=== PATIENT | female | born 1995 | race Hispanic/Latino ===

== ENCOUNTER 2020-07-21 22:49 | Observation (INO) | payer BC, MEDICAID ==
[~2020-07-21] VITALS: Ht 157.5 cm; Wt 102.1 kg
[2020-07-21 23:14] LABS: APPEARANCE,URINE Clear (CLEAR); BILIRUBIN,URINE Negative (NEGATIVE); COLOR,URINE Yellow (YELLOW); GLUCOSE, URINE (UA) Negative (NEGATIVE); KETONES,URINE Negative (NEGATIVE); LEUKOCYTE ESTERASE ,URINE Small (NEGATIVE); NITRATE,URINE Negative (NEGATIVE); OCCULT BLOOD,URINE Negative (NEGATIVE); PROTEIN,URINE Negative (NEGATIVE)
[2020-07-21 23:19] LABS: BACTERIA,URINE None Seen /HPF (None Seen); MUCUS,URINE Rare LPF (None Seen); RBC,URINE None Seen /HPF (0-1); SQUAMOUS EPITHELIAL CELL,UR Moderate /HPF (0-2); WBC,URINE 0-1 /HPF (0-1)
[2020-07-21] MEDS ORDERED: LACTATED RINGERS 1000ML 1,000 ML IV SCH (23:45)
[2020-07-21] MEDS ORDERED: LACTATED RINGERS 1000ML 1,000 ML IV ONE (23:48)
== END 2020-07-22 01:05 | disposition home or self-care (01) ==
LOC: EDH 22:49 → LDH 22:50
PROVIDERS: ADMIT Obstetrics & Gynecology; ATTEND Obstetrics & Gynecology
DX: O36.8930 Maternal care for other specified fetal problems, third trimester, not applicable or unspecified (principal); Z3A.38 38 weeks gestation of pregnancy
CPT/HCPCS: 59025; 76819; 81001; 96360; 99283; G0378 ×2; J7120

== ENCOUNTER 2020-07-29 15:51 | Observation (INO) | payer BC, MEDICAID ==
[~2020-07-29] VITALS: Ht 157.5 cm; Wt 102.5 kg
[2020-07-29 16:35] LABS: APPEARANCE,URINE Cloudy (CLEAR); BILIRUBIN,URINE Negative (NEGATIVE); COLOR,URINE Yellow (YELLOW); GLUCOSE, URINE (UA) Negative (NEGATIVE); KETONES,URINE 40 mg/dL (NEGATIVE); LEUKOCYTE ESTERASE ,URINE Moderate (NEGATIVE); NITRATE,URINE Negative (NEGATIVE); OCCULT BLOOD,URINE Negative (NEGATIVE); PH,URINE 6.5 (5.0-8.0); PROTEIN,URINE Negative (NEGATIVE)
[2020-07-29 17:28] LABS: RBC,URINE 0-1 /HPF (0-1)
[2020-07-29 17:29] LABS: BACTERIA,URINE Few /HPF (None Seen); MUCUS,URINE Few LPF (None Seen); SQUAMOUS EPITHELIAL CELL,UR Moderate /HPF (0-2)
[2020-07-29 17:56] VITALS: BP 123/60
== END 2020-07-29 17:35 | disposition home or self-care (01) ==
LOC: LDH 15:51
PROVIDERS: ADMIT Obstetrics & Gynecology; ATTEND Obstetrics & Gynecology
DX: O62.9 Abnormality of forces of labor, unspecified (principal); Z3A.39 39 weeks gestation of pregnancy
CPT/HCPCS: 59025; 81001; 87088; G0378

== ENCOUNTER 2020-08-01 16:25 | Inpatient (IN) | payer BC, MEDICAID ==
[~2020-08-01] VITALS: Ht 157.5 cm; Wt 101.6 kg
[2020-08-03] MEDS ORDERED: ROPIVACAINE 0.2% 100ML VIAL 100 ML EP SCH (13:00)
[2020-08-03] MEDS ORDERED: EPHEDRINE SULFATE 50 MG/ML AMPULE IVP PRN (13:00)
[2020-08-03] MEDS ORDERED: LACTATED RINGERS 500 ML 500 ML IV PRN (13:00)
[2020-08-03] MEDS ORDERED: NALOXONE HCL 0.4 MG/1 ML ML IV PRN (13:00)
[2020-08-03] MEDS ORDERED: BUTORPHANOL TARTRATE 2 MG/ML IVP PRN (13:00)
[2020-08-03] MEDS ORDERED: AMPICILLIN 2GM+NS 100ML 100 ML IV SCH (13:00)
[2020-08-03 13:23] LABS: MEAN CORPUSCULAR HEMOGLOBIN 29.6 pg (27.0-33.0); MEAN CORPUSCULAR HGB CONC 34.3 g/dL (32.0-36.0); MEAN CORPUSCULAR VOLUME 86.4 fL (79-99); RED BLOOD CELL COUNT(AUTO) 4.63 MIL/uL (4.00-5.50); RED CELL DISTRIBUTION WIDTH 13.8 % (11.0-15.5); WHITE BLOOD COUNT (AUTO) 9.9 K/uL (4.8-10.8)
[2020-08-03 13:30] LABS: APPEARANCE,URINE Cloudy (CLEAR); BILIRUBIN,URINE Negative (NEGATIVE); COLOR,URINE Yellow (YELLOW); GLUCOSE, URINE (UA) Negative (NEGATIVE); KETONES,URINE Negative (NEGATIVE); LEUKOCYTE ESTERASE ,URINE Small (NEGATIVE); NITRATE,URINE Negative (NEGATIVE); OCCULT BLOOD,URINE Negative (NEGATIVE); PH,URINE 7.5 (5.0-8.0); PROTEIN,URINE Negative (NEGATIVE); UROBILINOGEN,URINE 0.2 mg/dL (0.2-1.0)
[2020-08-03 13:42] LABS: BACTERIA,URINE Few /HPF (None Seen); RBC,URINE 0-1 /HPF (0-1); SQUAMOUS EPITHELIAL CELL,UR Moderate /HPF (0-2)
[2020-08-03] MEDS: LACTATED RINGERS 1000ML 1,000 ML IV PRN ×2 (13:58→21:36)
[2020-08-03] MEDS: MISOPROSTOL 25 MCG TABLET VG SCH ×2 (13:59→20:14)
[2020-08-03] MEDS: AMPICILLIN 1GM+NS 50ML 50 ML IV SCH ×2 (18:01→21:37)
[2020-08-03] MEDS ORDERED: MISOPROSTOL 25 MCG TABLET ONE ×2 (19:57→19:58)
[2020-08-04] MEDS: AMPICILLIN 1GM+NS 50ML 50 ML IV SCH ×5 (01:29→20:13)
[2020-08-04] MEDS: LACTATED RINGERS 1000ML 1,000 ML IV PRN ×2 (01:30→09:56)
[2020-08-04 06:12] LABS: HEPATITIS Bs ANTIGEN SCREEN P Negative (Negative)
[2020-08-04] MEDS ORDERED: OXYTOCIN-LR 20 UNITS/1000 ML 1,000 ML IV SCH (08:45)
[2020-08-04] MEDS: OXYTOCIN-LR 20 UNITS/1000 ML 1,000 ML IV SCH ×2 (08:45→17:10)
[2020-08-04] MEDS ORDERED: FENTANYL CITRATE PF 50 MCG/1 ML 2ML VIAL ONE (11:45)
[2020-08-04] MEDS ORDERED: MISOPROSTOL 200 MCG TABLET ONE (15:47)
[2020-08-04] MEDS ORDERED: METHYLERGONOVINE MALEATE 0.2 MG/1 ML ML ONE (15:48)
[2020-08-04] MEDS ORDERED: ACETAMINOPHEN 325 MG TAB PO PRN (16:30)
[2020-08-04] MEDS ORDERED: IBUPROFEN 600 MG TABLET PO PRN (16:30)
[2020-08-04] MEDS ORDERED: DIPH,PERTUSS(ACELL),TET VAC/PF 0.5 ML VIAL IM PRN (16:30)
[2020-08-04] MEDS ORDERED: ACETAMINOPHEN WITH CODEINE 1 TAB TAB PO PRN (16:30)
[2020-08-04] MEDS ORDERED: MEASLES/MUMPS/RUBELLA VACCINE, LIVE 0.5 ML/VIAL SQ PRN (16:30)
[2020-08-04] MEDS ORDERED: LANOLIN 30GM OINTMENT TP PRN (16:30)
[2020-08-04] MEDS ORDERED: WITCH HAZEL 1 PAD TP PRN (16:30)
[2020-08-04] MEDS ORDERED: BENZOCAINE/LANOLIN/ALOE VERA 60 ML AEROSOL TP PRN (16:30)
[2020-08-04 18:36] VITALS: BP 132/68
[2020-08-04] MEDS ORDERED: PNV1TABL17 PO (18:43)
[2020-08-04 19:41] VITALS: BP 127/71
[2020-08-04] MEDS: DOCUSATE SODIUM 100 MG CAP PO SCH (20:25)
[2020-08-04 23:27] VITALS: BP 134/80
[2020-08-05 03:11] VITALS: BP 120/69
[2020-08-05] MEDS: DOCUSATE SODIUM 100 MG CAP PO SCH (09:37)
[2020-08-05 11:26] VITALS: BP 121/70
[2020-08-05 16:36] VITALS: BP 128/85
== END 2020-08-05 17:50 | disposition home or self-care (01) | DRG 807 ==
LOC: LDH 08-03 12:36 → OBSVTOIN 08-03 12:36 → WSH 08-04 18:35
PROVIDERS: ADMIT Obstetrics & Gynecology; ATTEND Obstetrics & Gynecology
PROC: 10E0XZZ Delivery of Products of Conception, External Approach (ICD-10-PCS; principal; 2020-08-04)
PROC: 0KQM0ZZ Repair Perineum Muscle, Open Approach (ICD-10-PCS; 2020-08-04)
PROC: 3E0134Z Introduction of Serum, Toxoid and Vaccine into Subcutaneous Tissue, Percutaneous Approach (ICD-10-PCS; 2020-08-04)
PROC: 3E0234Z Introduction of Serum, Toxoid and Vaccine into Muscle, Percutaneous Approach (ICD-10-PCS; 2020-08-04)
PROC: 10907ZC Drainage of Amniotic Fluid, Therapeutic from Products of Conception, Via Natural or Artificial Opening (ICD-10-PCS; 2020-08-04)
PROC: 3E0R3BZ Introduction of Anesthetic Agent into Spinal Canal, Percutaneous Approach (ICD-10-PCS; 2020-08-04)
PROC: 00HU33Z Insertion of Infusion Device into Spinal Canal, Percutaneous Approach (ICD-10-PCS; 2020-08-04)
PROC: 3E033VJ Introduction of Other Hormone into Peripheral Vein, Percutaneous Approach (ICD-10-PCS; 2020-08-04)
PROC: 3E0P7VZ Introduction of Hormone into Female Reproductive, Via Natural or Artificial Opening (ICD-10-PCS; 2020-08-04)
DX: O36.63X0 Maternal care for excessive fetal growth, third trimester, not applicable or unspecified (principal); Z37.0 Single live birth; O99.214 Obesity complicating childbirth; O70.1 Second degree perineal laceration during delivery; Z3A.40 40 weeks gestation of pregnancy; Z23 Encounter for immunization; E66.9 Obesity, unspecified; O77.0 Labor and delivery complicated by meconium in amniotic fluid; O99.824 Streptococcus B carrier state complicating childbirth
CPT/HCPCS: 36415; 81001; 85027; 86592; 86850; 86900; 86901; 87088; 87340; A4314; A4606; G0378; J0290; J2210; J2590; J2795; J3010; J7120

== ENCOUNTER 2020-08-26 06:12 | Emergency (ER) | payer BC, MEDICAID ==
[~2020-08-26 06:12] MED LIST: PNV1TABL17 PO
[2020-08-26 07:19] LABS: BASOPHILS % (AUTO) 0.2 % (0.0-5.0); EOSINOPHILS % (AUTO) 0.9 % (0.0-8.0); HEMATOCRIT 44.1 % (36-48); LYMPHOCYTES % (AUTO) 17.2 % (21.0-51.0); MEAN CORPUSCULAR HEMOGLOBIN 29.1 pg (27.0-33.0); MEAN CORPUSCULAR VOLUME 85.6 fL (79-99); MONOCYTES % (AUTO) 4.9 % (3.0-13.0); NEUTROPHILS % (AUTO) 76.3 % (40.0-77.0); PLATELET COUNT (AUTO) 429 K/uL (130-400); RED BLOOD CELL COUNT(AUTO) 5.15 MIL/uL (4.00-5.50); RED CELL DISTRIBUTION WIDTH 12.8 % (11.0-15.5)
[2020-08-26 07:24] LABS: APPEARANCE,URINE Clear (CLEAR); BILIRUBIN,URINE Negative (NEGATIVE); COLOR,URINE Yellow (YELLOW); GLUCOSE, URINE (UA) Negative (NEGATIVE); KETONES,URINE Negative (NEGATIVE); LEUKOCYTE ESTERASE ,URINE Large (NEGATIVE); NITRATE,URINE Negative (NEGATIVE); OCCULT BLOOD,URINE Large (NEGATIVE); PH,URINE 5.5 (5.0-8.0); PROTEIN,URINE Negative (NEGATIVE); UROBILINOGEN,URINE 0.2 mg/dL (0.2-1.0)
[2020-08-26 07:42] LABS: BACTERIA,URINE Few /HPF (None Seen)
[2020-08-26] MEDS ORDERED: ONDANSETRON ODT 4MG TAB ONE (07:47)
[2020-08-26] MEDS ORDERED: ACETAMINOPHEN 500 MG TABLET ONE (08:01)
[2020-08-26] MEDS ORDERED: CEFAZOLIN SODIUM 1 GM VIAL ONE (08:01)
[2020-08-26] MEDS ORDERED: 0.9%NACL 100ML 100 ML IV ONE (08:02)
[2020-08-26 08:12] LABS: ALBUMIN 3.2 g/dL (3.5-5.0); BILIRUBIN,TOTAL 0.1 mg/dL (0.2-1.0); CREATININE 0.9 mg/dL (0.5-1.5); CRP QUANTITATIVE 4.1 mg/L (0.00-9.0); TOTAL PROTEIN, SERUM 7.8 g/dL (6.0-8.3)
== END 2020-08-26 09:58 | disposition home or self-care (01) ==
LOC: EDH 06:12
DX: O86.20 Urinary tract infection following delivery, unspecified (principal)
CPT/HCPCS: 36415; 80053; 81001; 84145; 85025; 86140; 87088; 96365; 99284; J0690

== ENCOUNTER 2021-12-06 17:34 | Observation (INO) | payer BC, MEDICAID ==
[~2021-12-06] VITALS: Ht 157.5 cm; Wt 112.5 kg
[2021-12-06] MEDS ORDERED: LACTATED RINGERS 1000ML IV SCH (18:00)
[2021-12-06 18:25] LABS: APPEARANCE,URINE Clear (CLEAR); BILIRUBIN,URINE Negative (NEGATIVE); COLOR,URINE Yellow (YELLOW); GLUCOSE, URINE (UA) Negative (NEGATIVE); KETONES,URINE 40 mg/dL (NEGATIVE); LEUKOCYTE ESTERASE ,URINE Trace (NEGATIVE); NITRATE,URINE Negative (NEGATIVE); OCCULT BLOOD,URINE Negative (NEGATIVE); PH,URINE 6.5 (5.0-8.0); PROTEIN,URINE Negative (NEGATIVE)
[2021-12-06 18:47] LABS: BACTERIA,URINE Moderate /HPF (None Seen); RBC,URINE 0-1 /HPF (0-1); SQUAMOUS EPITHELIAL CELL,UR Moderate /HPF (0-2)
[2021-12-06 18:49] LABS: MUCUS,URINE Moderate LPF (None Seen)
[2021-12-06 20:00] VITALS: BP 117/56
== END 2021-12-06 20:25 | disposition home or self-care (01) ==
LOC: EDH 17:34 → LDH 17:35 → EDH 17:41
PROVIDERS: ADMIT Obstetrics & Gynecology; ATTEND Obstetrics & Gynecology
DX: O60.03 Preterm labor without delivery, third trimester (principal); Z3A.36 36 weeks gestation of pregnancy
CPT/HCPCS: 81001; 87088; 96360; 96361; G0378 ×3; G0379

== ENCOUNTER 2023-06-19 15:01 | Emergency (ER) | payer MEDICAID ==
[~2023-06-19] VITALS: Ht 157.5 cm; Wt 106.6 kg
[~2023-06-19 15:01] MED LIST changes: +ACET-2079 PO
[2023-06-19 15:54] LABS: BASOPHILS # (AUTO) 0.01 K/uL (0.00-0.20); BASOPHILS % (AUTO) 0.1 % (0.0-5.0); EOSINOPHILS # (AUTO) 0.02 K/uL (0.00-0.70); EOSINOPHILS % (AUTO) 0.2 % (0.0-8.0); HEMATOCRIT 36.2 % (36-48); IMMATURE GRANULOCYTE ABSOLUTE 0.03 K/uL (0-1); LYMPHOCYTES # (AUTO) 1.3 K/uL (1.0-4.8); LYMPHOCYTES % (AUTO) 15.3 % (21.0-51.0); MEAN CORPUSCULAR HEMOGLOBIN 27.9 pg (27.0-33.0); MEAN CORPUSCULAR HGB CONC 33.7 g/dL (32.0-36.0); MEAN CORPUSCULAR VOLUME 82.8 fL (79-99); MONOCYTES # (AUTO) 0.5 K/uL (0.1-1.0); MONOCYTES % (AUTO) 6.4 % (3.0-13.0); NEUTROPHILS # (AUTO) 6.3 K/uL (1.8-7.7); NEUTROPHILS % (AUTO) 77.6 % (40.0-77.0); PLATELET COUNT (AUTO) 383 K/uL (130-400); RED BLOOD CELL COUNT(AUTO) 4.37 MIL/uL (4.00-5.50); RED CELL DISTRIBUTION WIDTH 12.9 % (11.0-15.5); WHITE BLOOD COUNT (AUTO) 8.2 K/uL (4.8-10.8)
[2023-06-19 15:55] LABS: APPEARANCE,URINE CLOUDY (CLEAR); BILIRUBIN,URINE NEGATIVE (NEGATIVE); COLOR,URINE YELLOW (YELLOW); GLUCOSE, URINE (UA) NEGATIVE (NEGATIVE); KETONES,URINE 10 mg/dL (NEGATIVE); LEUKOCYTE ESTERASE ,URINE 250 Leu/uL (NEGATIVE); NITRATE,URINE NEGATIVE (NEGATIVE); OCCULT BLOOD,URINE NEGATIVE (NEGATIVE); PROTEIN,URINE 50 mg/dL (NEGATIVE)
[2023-06-19 15:58] LABS: ADD UA MICROSCOPIC YES
[2023-06-19] MEDS ORDERED: ONDANSETRON 4MG INJ IVP ONE ×2 (16:00→17:30)
[2023-06-19] MEDS ORDERED: LACTATED RINGERS 1000ML 1,000 ML IV ONE (16:00)
[2023-06-19 16:04] LABS: CREATININE 0.5 mg/dL (0.5-1.5); POTASSIUM 3.3 mmol/L (3.5-5.1)
[2023-06-19 16:09] LABS: BACTERIA,URINE FEW /HPF (None Seen); MUCUS,URINE MOD LPF (None Seen); SQUAMOUS EPITHELIAL CELL,UR MOD /HPF (0-2)
[2023-06-19 16:29] LABS: BILIRUBIN,TOTAL 0.3 mg/dL (0.2-1.0); TOTAL PROTEIN, SERUM 7.6 g/dL (6.0-8.3)
[2023-06-19] MEDS ORDERED: CEFTRIAXONE 1G VIAL IVPB ONE (16:30)
[2023-06-19] MEDS ORDERED: ONDA4TAB10 PO (17:36)
[2023-06-19] MEDS ORDERED: MACR100 PO (17:36)
[2023-06-19 17:41] VITALS: BP 120/59; PULSE 94; RESP 17; O2SAT 98
== END 2023-06-19 17:58 | disposition home or self-care (01) ==
LOC: EDH 15:01
DX: O21.1 Hyperemesis gravidarum with metabolic disturbance (principal); O99.891 Other specified diseases and conditions complicating pregnancy; N30.01 Acute cystitis with hematuria; R10.2 Pelvic and perineal pain; Z79.899 Other long term (current) drug therapy; Z3A.17 17 weeks gestation of pregnancy
CPT/HCPCS: 99284; 96365; 96361; 96375; 80053; 84702; 83690; 85025; 87088; 81001; 36415; 96376; J7120; J0696; J2405 ×2; 96374

== ENCOUNTER 2023-06-30 13:09 | Emergency (ER) | payer MEDICAID ==
[~2023-06-30] VITALS: Ht 157.5 cm; Wt 105.2 kg
[~2023-06-30 13:09] MED LIST changes: +MACR100 PO; +ONDA4TAB10 PO
[2023-06-30 13:25] VITALS: BP 127/74; PULSE 115; RESP 18
[2023-06-30 13:57] LABS: BASOPHILS # (AUTO) 0.02 K/uL (0.00-0.20); BASOPHILS % (AUTO) 0.2 % (0.0-5.0); EOSINOPHILS # (AUTO) 0.14 K/uL (0.00-0.70); EOSINOPHILS % (AUTO) 1.2 % (0.0-8.0); HEMATOCRIT 33.6 % (36-48); IMMATURE GRANULOCYTE ABSOLUTE 0.05 K/uL (0-1); LYMPHOCYTES # (AUTO) 2.1 K/uL (1.0-4.8); LYMPHOCYTES % (AUTO) 17.7 % (21.0-51.0); MEAN CORPUSCULAR HEMOGLOBIN 28.3 pg (27.0-33.0); MEAN CORPUSCULAR HGB CONC 34.2 g/dL (32.0-36.0); MEAN CORPUSCULAR VOLUME 82.8 fL (79-99); MONOCYTES # (AUTO) 0.6 K/uL (0.1-1.0); MONOCYTES % (AUTO) 4.9 % (3.0-13.0); NEUTROPHILS % (AUTO) 75.6 % (40.0-77.0); PLATELET COUNT (AUTO) 407 K/uL (130-400); RED BLOOD CELL COUNT(AUTO) 4.06 MIL/uL (4.00-5.50); RED CELL DISTRIBUTION WIDTH 13.2 % (11.0-15.5); WHITE BLOOD COUNT (AUTO) 11.9 K/uL (4.8-10.8)
[2023-06-30 13:58] LABS: APPEARANCE,URINE CLEAR (CLEAR); BILIRUBIN,URINE NEGATIVE (NEGATIVE); COLOR,URINE LIGHT-YELLOW (YELLOW); GLUCOSE, URINE (UA) NEGATIVE (NEGATIVE); KETONES,URINE 40 mg/dL (NEGATIVE); LEUKOCYTE ESTERASE ,URINE NEGATIVE Leu/uL (NEGATIVE); NITRATE,URINE NEGATIVE (NEGATIVE); OCCULT BLOOD,URINE NEGATIVE (NEGATIVE); PROTEIN,URINE NEGATIVE (NEGATIVE); UROBILINOGEN,URINE 0.2 mg/dL (0.2-1.0)
[2023-06-30 14:10] LABS: CREATININE 0.4 mg/dL (0.5-1.5); POTASSIUM 3.6 mmol/L (3.5-5.1)
[2023-06-30 14:12] LABS: ADD UA MICROSCOPIC YES
[2023-06-30 14:16] LABS: BACTERIA,URINE RARE /HPF (None Seen); MUCUS,URINE RARE LPF (None Seen); RBC,URINE 0-1 /HPF (0-1); SQUAMOUS EPITHELIAL CELL,UR FEW /HPF (0-2)
[2023-06-30 14:37] LABS: ALBUMIN 2.8 g/dL (3.5-5.0); BILIRUBIN,TOTAL 0.2 mg/dL (0.2-1.0); TOTAL PROTEIN, SERUM 7.1 g/dL (6.0-8.3)
[2023-06-30] MEDS ORDERED: CEFTRIAXONE 1G VIAL ONE (14:44)
[2023-06-30] MEDS ORDERED: CEFTRIAXONE 1G VIAL IVPB ONE (15:00)
[2023-06-30] MEDS ORDERED: CEPH500T PO (15:17)
== END 2023-06-30 15:32 | disposition home or self-care (01) ==
LOC: EDH 13:09
DX: O26.892 Other specified pregnancy related conditions, second trimester (principal); R10.2 Pelvic and perineal pain; Z3A.18 18 weeks gestation of pregnancy
CPT/HCPCS: 99284; 96365; 80053; 84702; 85025; 81001; 36415; J0696

== ENCOUNTER 2023-10-10 20:14 | Observation (INO) | payer BC, MEDICAID ==
[~2023-10-10] VITALS: Ht 157.5 cm; Wt 109.8 kg
[~2023-10-10 20:14] MED LIST changes: +CEPH500T PO
[2023-10-10 20:29] VITALS: BP 119/69; PULSE 104; RESP 18
[2023-10-10 20:59] LABS: APPEARANCE,URINE CLEAR (CLEAR); BILIRUBIN,URINE NEGATIVE (NEGATIVE); COLOR,URINE LIGHT-YELLOW (YELLOW); GLUCOSE, URINE (UA) NEGATIVE (NEGATIVE); KETONES,URINE 40 mg/dL (NEGATIVE); LEUKOCYTE ESTERASE ,URINE NEGATIVE Leu/uL (NEGATIVE); NITRATE,URINE NEGATIVE (NEGATIVE); OCCULT BLOOD,URINE NEGATIVE (NEGATIVE); PH,URINE 6.5 (5.0-8.0); PROTEIN,URINE 10 mg/dL (NEGATIVE); UROBILINOGEN,URINE 0.2 mg/dL (0.2-1.0)
[2023-10-10 21:18] LABS: ADD UA MICROSCOPIC YES
[2023-10-10 21:20] LABS: BACTERIA,URINE RARE /HPF (None Seen); MUCUS,URINE RARE LPF (None Seen); RBC,URINE 0-1 /HPF (0-1); SQUAMOUS EPITHELIAL CELL,UR FEW /HPF (0-2); YEAST,URINE BUDDING RARE /HPF (None Seen)
== END 2023-10-10 23:04 | disposition home or self-care (01) ==
LOC: EDH 20:14 → LDH 20:51
PROVIDERS: ADMIT Obstetrics & Gynecology; ATTEND Obstetrics & Gynecology
DX: O99.343 Other mental disorders complicating pregnancy, third trimester (principal); O26.893 Other specified pregnancy related conditions, third trimester; M54.9 Dorsalgia, unspecified; R10.9 Unspecified abdominal pain; F32.A Depression, unspecified; Z3A.35 35 weeks gestation of pregnancy
CPT/HCPCS: 96360; 81001; G0378 ×2; G0379; J7120

== ENCOUNTER 2023-10-23 16:22 | Observation (INO) | payer BC, MEDICAID ==
[~2023-10-23] VITALS: Ht 157.5 cm; Wt 114.3 kg
[2023-10-23 16:25] VITALS: BP 122/70; PULSE 101; RESP 16
[2023-10-23 17:00] LABS: APPEARANCE,URINE CLOUDY (CLEAR); BILIRUBIN,URINE NEGATIVE (NEGATIVE); COLOR,URINE LIGHT-YELLOW (YELLOW); GLUCOSE, URINE (UA) NEGATIVE (NEGATIVE); KETONES,URINE NEGATIVE (NEGATIVE); LEUKOCYTE ESTERASE ,URINE 25 Leu/uL (NEGATIVE); NITRATE,URINE NEGATIVE (NEGATIVE); OCCULT BLOOD,URINE NEGATIVE (NEGATIVE); PH,URINE 7.5 (5.0-8.0); PROTEIN,URINE NEGATIVE (NEGATIVE); UROBILINOGEN,URINE 0.2 mg/dL (0.2-1.0)
[2023-10-23 17:05] LABS: ADD UA MICROSCOPIC YES
[2023-10-23] MEDS: LACTATED RINGERS 1000ML 1,000 ML IV SCH (17:05)
[2023-10-23 17:07] LABS: BACTERIA,URINE FEW /HPF (None Seen); MUCUS,URINE RARE LPF (None Seen); OTHER CASTS, URINE 1 /LPF (None Seen); SQUAMOUS EPITHELIAL CELL,UR FEW /HPF (0-2); UNCLASSIFIED CRYSTAL 4 /HPF (None Seen)
[2023-10-23] MEDS: TERBUTALINE SULFATE VIAL 1MG/ML SQ SCH (17:38)
[2023-10-23] MEDS: CELESTONE SOLUSPAN 6 MG/ML 5ML VIAL IM SCH (17:38)
[2023-10-23] MEDS ORDERED: DICYCLOMINE HCL 10 MG/5 ML ML PO ONE (19:45)
[2023-10-23] MEDS: ACETAMINOPHEN 500 MG TABLET PO ONE (19:58)
[2023-10-23] MEDS: DICYCLOMINE HCL 20 MG TAB PO SCH (20:27)
[2023-10-23] MEDS ORDERED: DICYCLOMINE HCL 20 MG TAB PO ONE (20:30)
== END 2023-10-23 21:45 | disposition home or self-care (01) ==
LOC: EDH 16:22 → LDH 16:31
PROVIDERS: ADMIT Internal Medicine; ATTEND Internal Medicine
DX: O26.893 Other specified pregnancy related conditions, third trimester (principal); R10.9 Unspecified abdominal pain; R10.2 Pelvic and perineal pain; O99.891 Other specified diseases and conditions complicating pregnancy; M54.9 Dorsalgia, unspecified; Z3A.34 34 weeks gestation of pregnancy
CPT/HCPCS: 96372 ×3; 96360; 96361; 81001; 76805; G0378 ×5; G0379; J7120; J0702; J3105

== ENCOUNTER 2023-10-24 17:52 | Outpatient (CLI) | payer BC, MEDICAID ==
[~2023-10-24] VITALS: Ht 157.5 cm; Wt 113.4 kg
[2023-10-24] MEDS ORDERED: CELESTONE SOLUSPAN 6 MG/ML 5ML VIAL IM SCH (18:01)
[2023-10-24] MEDS: CELESTONE SOLUSPAN 6 MG/ML 5ML VIAL ONE (18:12)
== END 2023-10-24 18:16 | disposition home or self-care (01) ==
LOC: WSO 17:52
PROVIDERS: ATTEND Internal Medicine
DX: O26.893 Other specified pregnancy related conditions, third trimester (principal); O99.343 Other mental disorders complicating pregnancy, third trimester; F32.A Depression, unspecified; Z3A.35 35 weeks gestation of pregnancy
CPT/HCPCS: 96372; J0702